=== PATIENT | female | born 1960 | race Two or more races ===

== ENCOUNTER 2020-10-11 07:54 | Day surgery (SDC) | payer OTHER ==
[~2020-10-11 07:54] MED LIST: AMLODI PO; CANDESARTAN-HC1 EACH PO; SIMVASTATIN20 MG PO; TOPROL XL25 M1 PO; VITAMIN D3 PO
[2020-10-11] MEDS ORDERED: IBU600 MG PO (13:16)
== END 2020-10-11 17:15 | disposition home or self-care (01) ==
LOC: CIR.AMB 07:54
PROVIDERS: ATTEND Obstetrics & Gynecology Gynecology
DX: N84.0 Polyp of corpus uteri (principal); Z20.822 Contact with and (suspected) exposure to COVID-19

== ENCOUNTER 2022-09-25 06:27 | Day surgery (SDC) | payer OTHER ==
[~2022-09-25] VITALS: Ht 165.1 cm; Wt 98.0 kg
[~2022-09-25 06:27] MED LIST changes: +IBU600 MG PO; +VASOFLEX D1 CA1 EACH PO
[2022-09-25] MEDS ORDERED: IBU600 MG PO (13:05)
== END 2022-09-25 17:05 | disposition home or self-care (01) ==
LOC: CIR.AMB 06:27
PROVIDERS: ATTEND Obstetrics & Gynecology Gynecology
DX: N84.0 Polyp of corpus uteri (principal); N72 Inflammatory disease of cervix uteri; Z20.822 Contact with and (suspected) exposure to COVID-19; I10 Essential (primary) hypertension; E78.00 Pure hypercholesterolemia, unspecified